=== PATIENT | male | born 1960 | race Caucasian/White ===

== ENCOUNTER 2021-01-01 16:43 | Emergency (ER) | payer SELFPAY ==
[2021-01-01 18:21] LABS: BASOPHIL 0.4 % (0-2); HCT 44.5 % (42.0-52.0); HGB 14.6 g/dl (13.2-18.0); LYMPHOCYTE 27.9 % (15-48); MCH 27.1 pg (25.0-31.0); MCHC 32.8 g/dL (32.0-36.0); MCV 82.6 fL (78.0-100.0); MONOCYTE 9.8 % (0-12); MPV 9.7 fL (6.0-9.5); NEUTROPHIL 59.6 % (41-80); NRBC 0; PLT 263 K/uL (150-400); RBC 5.39 M/uL (4.70-6.00); RDW 16.1 % (11.5-14.0); WBC 9.6 K/uL (4.0-10.5)
[2021-01-01 18:35] LABS: BUN/CREAT RATIO (CALC) 19.8 RATIO; CREATININE 1.01 mg/dL (0.67-1.17); POTASSIUM 4.3 mmol/L (3.5-5.1)
== END 2021-01-01 20:15 | disposition home or self-care (01) ==
LOC: FER 16:43
PROVIDERS: Nurse Practitioner Family
DX: G43.909 Migraine, unspecified, not intractable, without status migrainosus (principal)
CPT/HCPCS: 36415; 70450; 80048; 85025; J1100; J1885; J2405; J7030